=== PATIENT | female | born 1960 | race Hispanic/Latino ===

== ENCOUNTER 2021-06-04 10:34 | Emergency (ER) | payer MEDICARE ==
[~2021-06-04] VITALS: Ht 154.9 cm; Wt 72.6 kg
[2021-06-04] MEDS ORDERED: MUCINEX DM ER1 EACH PO (11:26)
== END 2021-06-04 11:35 | disposition home or self-care (01) ==
LOC: ER 11:26
DX: R06.02 Shortness of breath (principal); R05 Cough; U07.1 COVID-19; E78.5 Hyperlipidemia, unspecified; M06.9 Rheumatoid arthritis, unspecified
CPT/HCPCS: 93005; 99282